=== PATIENT | female | born 1985 | race Two or more races ===

== ENCOUNTER 2017-01-18 22:10 | Observation (INO) | payer BC, MEDICAID ==
[~2017-01-18] VITALS: Ht 154.9 cm; Wt 81.2 kg
[2017-01-18 23:21] LABS: Urine Bilirubin Negative (Negative); Urine Blood Negative /uL (Negative); Urine Color Yellow (Yellow); Urine Glucose Normal (Normal); Urine Ketone Negative (Negative); Urine Nitrite POSITIVE (Negative); Urine RBC <1 /hpf (0 - 4); Urine Squamous Epithelial Cell FEW /hpf (<5); Urine Urobilinogen Normal (Negative)
[2017-01-18 23:46] LABS: Basophils # (auto) 0 uL; Basophils % (auto) 0.3 % (0.0-2.0); DEFINITIVE SEE PRINTOUT; Eosinophils # (auto) 0 uL; Eosinophils % (auto) 0.4 % (0.0-7.0); Hematocrit 37.3 % (36.0-46.0); Hemoglobin 12.1 g/dL (12.2-16.2); Lymphocytes # (auto) 1.1 uL; Lymphocytes % (auto) 12.4 % (10.0-50.0); Mean Corpuscular Hemoglobin 25.1 pg (28.0-32.0); Mean Corpuscular Hgb Conc. 32.3 g/dL (32.0-36.0); Mean Corpuscular Volume 77.6 fL (80.0-100.0); Mean Platelet Volume 9.7 fL (7.4-10.4); Monocytes # (auto) 0.2 uL; Monocytes % (auto) 2.8 % (0.0-12.0); Neutrophils # (auto) 7.2 uL; Neutrophils % (auto) 84.1 % (37.0-80.0); Platelet Count (auto) 224 10^3/uL (140-450); Red Cell Distribution Width 15.7 % (11.6-16.0); SUSPECT SEE PRINTOUT; White Blood Cell 8.5 10^3/uL (4.4-10.8)
[2017-01-18 23:56] LABS: Albumin 3.3 g/dL (3.4-5.0); BUN/Creatinine Ratio 29.7; Potassium 4.2 mmol/L (3.5-5.1)
[2017-01-19 00:07] LABS: Bilirubin, Total 1.3 mg/dL (0.2-1.0); Total Protein 7.5 g/dL (6.4-8.2)
[2017-01-19] MEDS ORDERED: SODIUM CHLORIDE 0.9% 1,000 ML IV ONE ×2 (06:58)
[2017-01-19] MEDS ORDERED: cefTRIAXone 1GM/50ML D5W 50 ML IV ONE (07:15)
[2017-01-19] MEDS ORDERED: ONDANSETRON HCL 4 MG/2 ML VIAL IV ONE (07:15)
[2017-01-19] MEDS ORDERED: MORPHINE SULFATE 4 MG/ML SYRG IV ONE (07:15)
[2017-01-19] MEDS ORDERED: IOHEXOL 300 MG/ML 100ML BOTTLE IJ ONE (07:44)
[2017-01-19 09:47] VITALS: BP 142/77
== END 2017-01-19 10:02 | disposition short-term general hospital (02) | DRG 440 ==
LOC: ER 22:20 → OVERFLOW 22:21 → ER 01-19 10:02
PROVIDERS: ADMIT Emergency Medicine; ATTEND Emergency Medicine
DX: K85.90 Acute pancreatitis without necrosis or infection, unspecified (principal)
CPT/HCPCS: 36415; 71020; 74177; 76705; 80053; 81001; 81025; 82150; 83605; 83690; 83735; 84702; 85025; 87040; 96361; 96365; 96375; 99285; G0378; J0696; J2270; J2405; J7030; Q9967